=== PATIENT | female | born 1970 | race Caucasian/White ===

== ENCOUNTER 2016-04-04 14:34 | Emergency (ER) | payer OTHER ==
--- NOTE | 2016-04-04 18:59 | ED ORDER SUMMARY ---
..... Patient: ROMEO HOOKER OrderSheet [facility] VisitID: [id number] [address] [place] [address] 46y, F Registration Date/Time: 04/04/2016 ORDER SHEET Weight: 88.4 kg (stated) Allergies: NKDA GENERAL ORDERS: CBC w Diff Urgent (15:22 04/04/2016 ABlanchette PA-C) (15:42 KWilliams R.N.) CMP Urgent (15:22 04/04/2016 ABlanchette PA-C) (15:42 KWilliams R.N.) Amylase Urgent (15:22 04/04/2016 ABlanchette PA-C) (15:42 KWilliams R.N.) Lipase Urgent (15:22 04/04/2016 ABlanchette PA-C) (15:42 KWilliams R.N.) PT with INR Urgent (15:22 04/04/2016 ABlanchette PA-C) (15:42 KWilliams R.N.) UA-Culture if indicated Urgent (15:22 04/04/2016 ABlanchette PA-C) (Ack 16:02 RKaruga) (16:44 SRoberts R.N.) Urine Urgent (15:22 04/04/2016 ABlanchette PA-C) (Ack 16:02 RKaruga) (16:44 SRoberts R.N.) Urine Drug Screen Urgent (15:22 04/04/2016 ABlanchette PA-C) (Ack 16:02 RKaruga) (16:43 SRoberts R.N.) Ammonia Level Urgent (15:22 04/04/2016 ABlanchette PA-C) (15:43 KWilliams R.N.) Magnesium Urgent (15:22 04/04/2016 ABlanchette PA-C) (15:43 KWilliams R.N.) MEDICATION ORDERS: Carafate PO 1 gm (in slurry if possible) (16:23 04/04/2016 ABlanchette PA-C) (16:45 SRoberts R.N.) (Cancelled: Duplicate Order16:50 ABlanchette PA-C) Carafate PO 2 gm (NOW) (16:49 04/04/2016 ABlanchette PA-C) (17:01 SRoberts R.N.) IV FLUIDS: IV NS with Normal Saline 1 Liter: initial bolus none -, then 1000 mL/hr for X1 (NOW) (15:20 04/04/2016 ABlanchette PA-C) (Ack 15:29 SRoberts R.N.) (16:39 SRoberts R.N.) Pepcid IV 40 mg/50mL (NOW) (15:20 04/04/2016 ABlanchette PA-C) (Ack 15:29 SRoberts R.N.) (16:41 SRoberts R.N.) Zofran IV 8 mg (NOW) (15:20 04/04/2016 ABlanchette PA-C) (Ack 15:29 SRoberts R.N.) (16:40 SRoberts R.N.) Ativan IV 0.5 mg (HIGH ALERT MEDICATION, NOW) (15:21 04/04/2016 ABlanchette PA-C) (Ack 15:29 SRoberts R.N.) (16:42 SRoberts R.N.) Ativan IV 0.5 mg (HIGH ALERT MEDICATION, NOW) (16:23 04/04/2016 ABlanchette PA-C) (16:43 SRoberts R.N.) Ativan IV 0.5 mg (HIGH ALERT MEDICATION, NOW) (18:50 04/04/2016 ABlanchette PA-C) (Ack 18:55 SRoberts R.N.) (19:06 SRoberts R.N.) Zofran IV 8 mg (NOW) (18:51 04/04/2016 ABlanchette PA-C) (Ack 18:55 SRoberts R.N.) (19:05 SRoberts R.N.) ORDER SHEET NOTES: [Electronically signed by Yisel Soto R.N. (20:42 04/04/2016)] [Electronically signed by Pattie Jose PA-C (00:02 04/05/2016)] [Electronically locked/signed by Yisel Soto R.N. (20:42 04/04/2016)]
--- NOTE | 2016-04-04 18:59 | ED ORDER SUMMARY ---
..... Patient: ROMEO HOOEKR OrderSheet [facility] VisitID: [id number] [address] [place] [address] 46y, F Registration Date/Time: 04/04/2016 ORDER SHEET Weight: 88.4 kg (stated) Allergies: NKDA GENERAL ORDERS: CBC w Diff Urgent (15:22 04/04/2016 ABlanchette PA-C) (15:42 KWilliams R.N.) CMP Urgent (15:22 04/04/2016 ABlanchette PA-C) (15:42 KWilliams R.N.) Amylase Urgent (15:22 04/04/2016 ABlanchette PA-C) (15:42 KWilliams R.N.) Lipase Urgent (15:22 04/04/2016 ABlanchette PA-C) (15:42 KWilliams R.N.) PT with INR Urgent (15:22 04/04/2016 ABlanchette PA-C) (15:42 KWilliams R.N.) UA-Culture if indicated Urgent (15:22 04/04/2016 ABlanchette PA-C) (Ack 16:02 RKaruga) (16:44 SRoberts R.N.) Urine Urgent (15:22 04/04/2016 ABlanchette PA-C) (Ack 16:02 RKaruga) (16:44 SRoberts R.N.) Urine Drug Screen Urgent (15:22 04/04/2016 ABlanchette PA-C) (Ack 16:02 RKaruga) (16:43 SRoberts R.N.) Ammonia Level Urgent (15:22 04/04/2016 ABlanchette PA-C) (15:43 KWilliams R.N.) Magnesium Urgent (15:22 04/04/2016 ABlanchette PA-C) (15:43 KWilliams R.N.) MEDICATION ORDERS: Carafate PO 1 gm (in slurry if possible) (16:23 04/04/2016 ABlanchette PA-C) (16:45 SRoberts R.N.) (Cancelled: Duplicate Order16:50 ABlanchette PA-C) Carafate PO 2 gm (NOW) (16:49 04/04/2016 ABlanchette PA-C) (17:01 SRoberts R.N.) IV FLUIDS: IV NS with Normal Saline 1 Liter: initial bolus none -, then 1000 mL/hr for X1 (NOW) (15:20 04/04/2016 ABlanchette PA-C) (Ack 15:29 SRoberts R.N.) (16:39 SRoberts R.N.) Pepcid IV 40 mg/50mL (NOW) (15:20 04/04/2016 ABlanchette PA-C) (Ack 15:29 SRoberts R.N.) (16:41 SRoberts R.N.) Zofran IV 8 mg (NOW) (15:20 04/04/2016 ABlanchette PA-C) (Ack 15:29 SRoberts R.N.) (16:40 SRoberts R.N.) Ativan IV 0.5 mg (HIGH ALERT MEDICATION, NOW) (15:21 04/04/2016 ABlanchette PA-C) (Ack 15:29 SRoberts R.N.) (16:42 SRoberts R.N.) Ativan IV 0.5 mg (HIGH ALERT MEDICATION, NOW) (16:23 04/04/2016 ABlanchette PA-C) (16:43 SRoberts R.N.) Ativan IV 0.5 mg (HIGH ALERT MEDICATION, NOW) (18:50 04/04/2016 ABlanchette PA-C) (Ack 18:55 SRoberts R.N.) (19:06 SRoberts R.N.) Zofran IV 8 mg (NOW) (18:51 04/04/2016 ABlanchette PA-C) (Ack 18:55 SRoberts R.N.) (19:05 SRoberts R.N.) ORDER SHEET NOTES: [Electronically signed by Yisel Soto R.N. (20:42 04/04/2016)] [Electronically signed by Pattie Jose PA-C (00:02 04/05/2016)] [Electronically locked/signed by Yisel Soto R.N. (20:42 04/04/2016)]
--- NOTE | 2016-04-04 18:59 | ED NURSING NOTES ---
Clinical Report - Nurses [facility] [address] [place] [address] 04/04/2016 14:37 Patient: ROMEO HOOKER TRIAGE Triage time 14:55. Acuity: LEVEL 3. Chief Complaint: (Withdrawing from etoh, beer). Alert. No acute distress. --15:07 Yisel Soto R.N. 14:54 04/04/16. BP: 110/96. HR: 120. RR: 20. O2 saturation: 98%. Temp: 97.7 F. Pain level now: 2/10. Additional comments: sore all over 2. Also having some heart burn. . --15:07 Yisel Soto R.N. 14:54 04/04/16. BP: 110/96. HR: 120. RR: 20. O2 saturation: 98%. Temp: 97.7 F. Pain level now: 2/10. Additional comments: sore all over 2. Also having some heart burn. . --15:07 Yisel Soto R.N. Weight: 88.4 kg stated. Height/Length: 68 inches Per Patient. BMI: 29.6. --15:00 Yisel Soto R.N. Medications Xanax Oral 0.5 mg, daily as needed. --14:57 Yisel Soto R.N. BusPIRone HCl Oral 30 mg, daily. --14:58 Yisel Soto R.N. CeleXA Oral (Tablet 20 mg) 1 tablet, daily. --14:58 Yisel Soto R.N. Omeprazole Oral 20 mg, daily. --14:59 Yisel Soto R.N. Allergies NKDA. --14:57 Yisel Soto R.N. Medication/allergy information source: the patient and patient's family. --15:07 Yisel Soto R.N. History Arrived by private vehicle. Historian: patient and family. Accompanied by family. Primary physician ([facility]). Onset. (2 months ago, Sober for 5 years, then found out some info about mom's Ca and dying soon.). Treatment [employer]: None. PAST MEDICAL HX: Immunizations: status is unknown. Last normal menstrual period was 1 week ago. SOCIAL HX: Smoker- current status unknown. Alcohol use; consumes beer daily. Patient is a longstanding alcoholic. Patient smells of ETOH in the emergency department. FALL RISK ASSESSMENT: Fall risk assessment completed. No fall risk identified. NUTRITIONAL RISK ASSESSMENT: The nutritional risk assessment revealed no deficiencies. FUNCTIONAL ASSESSMENT: Functional assessment: no impairments noted. LEARNING NEEDS ASSESSMENT: The learning needs assessment revealed no barriers. SKIN INTEGRITY ASSESSMENT: Skin integrity risk assessment completed. No skin integrity risk identified. --15:07 Yisel Soto R.N. PROBLEMS: Etoh withdrawal . Reflux. Anxiety/depression . --15:06 Yisel Soto R.N. ADDITIONAL SURGERIES: Liver bx . Tubal Ligation. Tubal preg. --15:06 Yisel Soto R.N. Interventions ID band on patient. To room. --15:07 Yisel Soto R.N. PHYSICAL ASSESSMENT Ambulatory to room. Patient gowned. GENERAL / NEURO / PSYCH: Alert. Oriented X 4. Appears in pain and anxious. HEENT: Mucous membranes are pink. RESPIRATORY: Respirations not labored. CVS: Capillary refill less than 2 seconds. GI / : Abdomen nontender. SKIN: Skin intact. Skin is warm and dry. Normal skin turgor. --15:07 Yisel Soto R.N. NURSING PROGRESS NOTES Patient gowned. Head of bed elevated. Two patient identifiers checked. Call light placed in reach. Side rails up x 2. Bed placed in lowest position. Brakes of bed on. Patient ready for evaluation. --15:09 Yisel Soto R.N. 15:33 04/04/2016 Started 40 mg of Pepcid IVPB in bag #1 100 mL; at 100 mL/hr via site #1 via IV pump. Allergies verified and confirmed 5 rights. IV patency established. IV site checked: no pain, redness, or swelling. IV flushed thoroughly pre- and post-medication administration. --16:41 Yisel Soto R.N. 15:36 04/04/2016 Ativan (LORazepam) IVP 0.5 mg given over 1 minute(s) via site #1. Allergies verified, confirmed 5 rights and sedative warning given to the patient. IV patency established. IV site checked: no pain, redness, or swelling. IV flushed thoroughly pre- and post-medication administration. IVP given by RN. --16:42 Yisel Soto R.N. 15:37 04/04/2016 Site #1 started via IV in the right antecubital space with an 20g angiocath, with aseptic technique and good blood return; one attempt. Blood drawn: rainbow set. Labeled in the presence of the patient and sent to the lab. Saline lock flushed with 10 mL saline. --15:42 Grady Jones R.N. 15:39 04/04/2016 Started bag #1 1000 mL IV Fluids IV NS (Saline); at 1000 mL/hr over 1 hour(s) via site #1 via IV pump. Allergies verified and confirmed 5 rights. IV patency established. IV site checked: no pain, redness, or swelling. IV flushed thoroughly pre- and post-medication administration. --16:39 Yisel Soto R.N. 15:40 04/04/2016 Zofran (Ondansetron HCl) IVP 8 mg given over 1 minute(s) via site #1. Allergies verified and confirmed 5 rights. IV patency established. IV site checked: no pain, redness, or swelling. IV flushed thoroughly pre- and post-medication administration. IVP given by RN. --16:40 Yisel Soto R.N. 16:33 04/04/2016 Ativan (LORazepam) IVP 0.5 mg given over 1 minute(s) via site #1. Allergies verified, confirmed 5 rights and sedative warning given to the patient. IV patency established. IV site checked: no pain, redness, or swelling. IV flushed thoroughly pre- and post-medication administration. IVP given by RN. --16:43 Yisel Soto R.N. 16:45 04/04/2016 Carafate (Sucralfate) PO 1 gm given. Allergies verified and confirmed 5 rights. --16:45 Yisel Soto R.N. 17:00 04/04/2016 Pepcid IVPB Discontinued: bag #1 infused. Total amount infused: 40/100 mL. IV patency established. IV site checked: no pain, redness, or swelling. IV flushed thoroughly. --17:00 Yisel Soto R.N. 17:01 04/04/2016 Carafate (Sucralfate) PO 2 gm given. Allergies verified and confirmed 5 rights. --17:01 Yisel Soto R.N. 17:01 04/04/2016 IV Fluids IV NS Bag Change: bag #1 infused. Total amount infused: 1000. STARTED bag #2 (1000 mL) at 1000 mL/hr via IV pump. Confirmed 5 rights. IV patency established. IV site checked: no pain, redness, or swelling. IV flushed thoroughly. --17:01 Yisel Soto R.N. 17:05 04/04/16. ( Sleeping, less shaky, spouse at the bedside.). --17:05 Yisel Soto R.N. 17:20 04/04/16. BP: 110/68. HR: 68. RR: 16. O2 saturation: 99% on room air. Pain level now: 0/10. Additional comments: sleeping . --17:20 Yisel Soto R.N. 17:54 04/04/16. BP: 145/88. HR: 69. RR: 18. O2 saturation: 99% on room air. Pain level now: 0/10. Additional comments: sleeping, arouses easily . --17:56 Yisel Soto R.N. 18:10 04/04/2016 IV Fluids IV NS Discontinued: bag #2 infused. Total amount infused: 1000 mL. IV patency established. IV site checked: no pain, redness, or swelling. IV flushed thoroughly. --19:06 Yisel Soto R.N. 18:50 04/04/2016 Zofran (Ondansetron HCl) IVP 8 mg given over 2 minute(s) via site #1. Allergies verified and confirmed 5 rights. IV patency established. IV site checked: no pain, redness, or swelling. IV flushed thoroughly pre- and post-medication administration. IVP given by RN. --19:05 Yisel Soto R.N. 19:01 04/04/2016 Ativan (LORazepam) IVP 0.5 mg given over 1 minute(s) via site #1. Allergies verified, confirmed 5 rights and sedative warning given to the patient and patient's family. IV patency established. IV site checked: no pain, redness, or swelling. IV flushed thoroughly pre- and post-medication administration. IVP given by RN. --19:06 Yisel Soto R.N. DISPOSITION / DISCHARGE 19:30. Condition at departure: improved. No learning barriers present. Discharge instructions provided and reviewed with the patient. Reviewed medication(s) side effects, precautions, dosing and course information. Prescription(s) given to the patient. Patient verbalized understanding. Written instructions provided in Thai. The patient was discharged home and accompanied by spouse. She left the Emergency Department ambulatory and via private vehicle. Spouse driving. Medication list reviewed and validated. --20:41 Yisel Soto R.N. 19:30 04/04/16. BP: 135/78. HR: 79. RR: 20. O2 saturation: 100%. Temp: deferred. Pain level now: 1/10. 17:54 04/04/16. BP: 145/88. HR: 69. RR: 18. O2 saturation: 99% on room air. Pain level now: 0/10. Additional comments: sleeping, arouses easily . 17:20 04/04/16. BP: 110/68. HR: 68. RR: 16. O2 saturation: 99% on room air. Pain level now: 0/10. Additional comments: sleeping . 16:05 04/04/16. BP: 113/84. HR: 69. RR: 18. O2 saturation: 99% on room air. 14:54 04/04/16. BP: 110/96. HR: 120. RR: 20. O2 saturation: 98%. Temp: 97.7 F. Pain level now: 2/10. Additional comments: sore all over 2. Also having some heart burn. . --20:41 Yisel Soto R.N. Locked/Released at 04/04/2016 20:42 by Yisel Soto R.N.
--- NOTE | 2016-04-04 18:59 | ED CLINICAL REPORT ---
Clinical Report - Physicians/Mid Levels [facility] [address] [place] [address] 04/04/2016 14:37 Patient: ROMEO HOOKER Time Seen: 15:04; initial patient contact. Arrived- By private vehicle. Historian- patient. pt has been sober for past 5 years and 2 weeks ago started drinking again when she found out her mother is dying of cancer she has been drinking 12-16 [place] and beers/day since. she had 3 angry orchards today, developed upper epigastric pain and began vomiting. she also stopped taking all of her psych medication including celexa and has been having some 'brain zaps' since. HISTORY OF PRESENT ILLNESS Chief Complaint: TREMORS. Wants to stop drinking. Wants to enter detox program. but is in recovery and has access to counseling for alcohol currently, her is with her and is going to take her tomorrow. Symptoms started today. Duration of substance abuse- 2 weeks. Substances abused: Alcohol. (2 hours ago). No fever, chills or suicidal thoughts. She has had nausea, vomiting and moderate abdominal pain. The pain is described as located in the epigastrium and been depressed. The symptoms are described as moderate. No injuries noted. Similar symptoms previously: Several times (years ago). Recent medical care: Not recently seen/assessed. REVIEW OF SYSTEMS The patient has not had weight loss. No sweats. All systems otherwise negative, except as recorded above. PAST HISTORY See nurses notes. History of alcoholism. Psychiatric problems: depression. Problems: Etoh withdrawal . Reflux. Anxiety/depression . Medications: Omeprazole Oral 20 mg, daily. CeleXA Oral (Tablet 20 mg) 1 tablet, daily. BusPIRone HCl Oral 30 mg, daily. Xanax Oral 0.5 mg, daily as needed. Allergies: NKDA. SOCIAL HISTORY Alcohol use. No drug use. FAMILY HISTORY Negative. ADDITIONAL NOTES The nursing notes have been reviewed with agreement regarding the chief complaint, HPI, ROS, PMH and patient medications and allergies. PHYSICAL EXAM Vital Signs: 04/04/2016 14:54 BP: 110/96. HR: 120. RR: 20. O2 saturation: 98%. Temp: 97.7 F. Pain level now: 03/19. Have been reviewed. Appearance: Alert. Oriented X3. The patient is agitated and odor of alcohol is present. Speech is not slurred. Patient in mild distress. Head: Head atraumatic. Eyes: Pupils equal, round and reactive to light. ENT: Normal ENT inspection. Airway intact. Moist mucous membranes. Pharynx normal. Neck: Normal inspection. Neck supple. CVS: Normal heart rate and rhythm. Heart sounds normal. Respiratory: No respiratory distress. Breath sounds normal. Abdomen: Soft and nontender. Mild tenderness in the epigastric area. No guarding or rebound tenderness. No organomegaly. Back: Normal inspection. Skin: Skin warm and dry. Normal skin color. No rash. Normal skin turgor. Extremities: No lower extremity edema. Neuro: Alert. No motor deficit. No sensory deficit. Reflexes normal. LABS, X-RAYS, AND EKG Laboratory Tests: UA-Culture if indicated: (ALEENA: 04/04/2016 16:30) ( [facility] [place] Final results Test Result Flag Units (Reference) URINE COLOR YELLOW URINE APPEARANCE CLEAR URINE GLUCOSE NEGATIVE (NEGATIVE) URINE BILIRUBIN NEGATIVE (NEGATIVE) URINE KETONE NEGATIVE (NEGATIVE) URINE SPECIFIC GRAVITY <= 1.005 L (1.010-1.030) URINE PH 6.0 (5.0-8.0) URINE PROTEIN NEGATIVE (NEGATIVE) URINE UROBILINOGEN 0.2 EU/dL (0.2-1.0) URINE NITRITE NEGATIVE (NEGATIVE) URINE BLOOD 1+ (NEGATIVE) URINE LEUK ESTERASE NEGATIVE (NEGATIVE) URINE RBC 0-1 rbc/hpf (0-1) URINE WBC 1-3 wbc/hpf (0-1) URINE EPITHELIAL CELLS 1-3 EPI/hpf (0-5) URINE BACTERIA TRACE (<1+) (NONE SEEN) URINE COMMENT CULT NOT INDICATED URINE CULTURES ARE SET-UP BASED ON THE FOLLOWING CRITERIA:POSITIVE NITRITEPOSITIVE LEUKOCYTE ESTERASEGREATER THAN 10 WHITE BLOOD CELLSMODERATE (2+) OR GREATER BACTERIA Urine: (ALEENA: 04/04/2016 15:38) ( [facility] 04/04/2016 16:55) Final results Test Result Flag Units (Reference) URINE NEGATIVE CBC w Diff: (ALEENA: 04/04/2016 15:38) ( [facility] 04/04/2016 16:22) Final results Test Result Flag Units (Reference) WHITE BLOOD COUNT 4.8 K/uL (4.5-11.5) RED BLOOD COUNT 5.05 M/uL (4.00-5.20) HEMOGLOBIN 12.7 gm/dL (12.0-16.0) HEMATOCRIT 38.7 % (36.0-46.0) MEAN CELL VOLUME 77 L fL (80-100) MEAN CORPUSCULAR HGB 25 L pg (26-34) MEAN CORPUSCULAR HGB CONC 33 g/dL (31-37) RED CELL DISTRIBUTION WIDTH 18.3 H % (11.6-14.8) PLATELET COUNT 209 K/uL (150-400) NEUTROPHIL % 57.3 % (50-75) LYMPH % 27.4 % (25-40) MONO % 10.0 % (3-14) EOSINOPHIL % 4.5 H % (0-4) BASOPHIL % 0.8 % (0-2) PT with INR: (ALEENA: 04/04/2016 15:38) ( [facility] 04/04/2016 16:25) Final results Test Result Flag Units (Reference) INR 1.0 (0.8-1.2) Low Intensity Therapy: INR 1.5-2.0 PT range 18.5-23.1Mod.Intensity Therapy: INR 2.0-3.0 PT range 23.1-31.5High Intensity Therapy: INR 2.5-3.5 PT range 27.4-35.5High Intensity Therapy 2: INR 3.0-4.0 PT range 31.5-39.3 Urine Drug Screen: (ALEENA: 04/04/2016 16:30) ( [facility] 04/04/2016 17:10) Final results Test Result Flag Units (Reference) AMPHETAMINE/METHAMPHETAMINE NEGATIVE (NEGATIVE) BARBITURATE NEGATIVE (NEGATIVE) BENZODIAZEPINE NEGATIVE (NEGATIVE) CANNABINOID NEGATIVE (NEGATIVE) COCAINE NEGATIVE (NEGATIVE) ECSTASY NEGATIVE (NEGATIVE) METHADONE NEGATIVE (NEGATIVE) OPIATE NEGATIVE (NEGATIVE) The urine drug screen is a qualitative screening test fordrug overdose and abuse. All screen results should beconsidered as presumptive.Drugs screened for are as follows:BenzodiazepinesCocaineAmphetamines/MetamphetaminesTHC (Tetrahydrocannabinol)OpiatesBarbituratesEcstasyMethadonePositive results are unconfirmed. For confirmation, notifythe lab for the specimen to be sent to the reference lab.All confirmations must be performed by a differentmethodology.The ingestion of natural herbal and plant productscontaining Ephedra/Ephedra metabolites can produce in urineone or more substances capable of cross reacting withamphetamine/methamphetamine immunoassays. These testsprovide a preliminary result only. A more specificalternative chemical method must be used to obtain aconfirmed analytical result. Ammonia Level: (ALEENA: 04/04/2016 16:30) ( [facility] 04/04/2016 16:59) Final results Test Result Flag Units (Reference) AMMONIA 30 umol/L (11-32) CMP: (ALEENA: 04/04/2016 15:38) ( [facility] 04/04/2016 16:19) Final results Test Result Flag Units (Reference) GLUCOSE 127 H mg/dL (70-110) BUN 4 L mg/dL (7-18) CREATININE 0.7 mg/dL (0.6-1.3) Estimated GFR >60 mL/min Estimated GFR- >60 mL/min Note: Persistent reduction over 3 months in eGFR<60 mL/min/1.73 m2 defines CKD. Patients with eGFR values>=60 mL/min/1.73 m2 may also have CKD if evidence ofpersistent proteinuria. Additional information may be foundat www.kidney.org. SODIUM 143 mmol/L (136-145) POTASSIUM 3.8 mmol/L (3.5-5.1) CHLORIDE 103 mmol/L (98-107) CARBON DIOXIDE 27 mmol/L (21-32) CALCIUM 8.2 L mg/dL (8.5-10.1) TOTAL PROTEIN 7.6 g/dL (6.4-8.2) ALBUMIN 3.6 g/dL (3.3-5.0) BILIRUBIN, TOTAL 0.3 mg/dL (0.0-1.0) ALKALINE PHOSPHATASE 78 U/L (46-116) AST (SGOT) 50 H U/L (15-37) ALT (SGPT) 48 U/L (12-78) MAGNESIUM 1.6 L mg/dL (1.8-2.4) LIPASE 174 U/L (73-393) AMYLASE 65 U/L (25-115) . PROGRESS AND PROCEDURES Course of Care: pt vomiting at 1500, guiac positive no ronit blood. Patient gowned. Head of bed elevated. Two patient identifiers checked. Call light placed in reach. Side rails up x 2. Bed placed in lowest position. Brakes of bed on. Patient ready for evaluation. --15:09 Yisel Soto R.N. 15:33 04/04/2016 Started 40 mg of Pepcid IVPB in bag #1 100 mL; at 100 mL/hr via site #1 via IV pump. Allergies verified and confirmed 5 rights. IV patency established. IV site checked: no pain, redness, or swelling. IV flushed thoroughly pre- and post-medication administration. --16:41 Yisel Soto R.N. 15:36 04/04/2016 Ativan (LORazepam) IVP 0.5 mg given over 1 minute(s) via site #1. Allergies verified, confirmed 5 rights and sedative warning given to the patient. IV patency established. IV site checked: no pain, redness, or swelling. IV flushed thoroughly pre- and post-medication administration. IVP given by RN. --16:42 Yisel Soto R.N. 15:37 04/04/2016 Site #1 started via IV in the right antecubital space with an 20g angiocath, with aseptic technique and good blood return; one attempt. Blood drawn: rainbow set. Labeled in the presence of the patient and sent to the lab. Saline lock flushed with 10 mL saline. --15:42 Grady Jones R.N. 15:39 04/04/2016 Started bag #1 1000 mL IV Fluids IV NS (Saline); at 1000 mL/hr over 1 hour(s) via site #1 via IV pump. Allergies verified and confirmed 5 rights. IV patency established. IV site checked: no pain, redness, or swelling. IV flushed thoroughly pre- and post-medication administration. --16:39 Yisel Soto R.N. 15:40 04/04/2016 Zofran (Ondansetron HCl) IVP 8 mg given over 1 minute(s) via site #1. Allergies verified and confirmed 5 rights. IV patency established. IV site checked: no pain, redness, or swelling. IV flushed thoroughly pre- and post-medication administration. IVP given by RN. --16:40 Yisel Soto R.N. 16:33 04/04/2016 Ativan (LORazepam) IVP 0.5 mg given over 1 minute(s) via site #1. Allergies verified, confirmed 5 rights and sedative warning given to the patient. IV patency established. IV site checked: no pain, redness, or swelling. IV flushed thoroughly pre- and post-medication administration. IVP given by RN. --16:43 Yisel Soto R.N. 16:45 04/04/2016 Carafate (Sucralfate) PO 1 gm given. Allergies verified and confirmed 5 rights. --16:45 Yisel Soto R.N. 17:00 04/04/2016 Pepcid IVPB Discontinued: bag #1 infused. Total amount infused: 40/100 mL. IV patency established. IV site checked: no pain, redness, or swelling. IV flushed thoroughly. --17:00 Yisel Soto R.N. 17:01 04/04/2016 Carafate (Sucralfate) PO 2 gm given. Allergies verified and confirmed 5 rights. --17:01 Yisel Soto R.N. 17:01 04/04/2016 IV Fluids IV NS Bag Change: bag #1 infused. Total amount infused: 1000. STARTED bag #2 (1000 mL) at 1000 mL/hr via IV pump. Confirmed 5 rights. IV patency established. IV site checked: no pain, redness, or swelling. IV flushed thoroughly. --17:01 Yisel Soto R.N. 17:05 04/04/16. ( Sleeping, less shaky, spouse at the bedside.). --17:05 Yisel Soto R.N. 17:20 04/04/16. BP: 110/68. HR: 68. RR: 16. O2 saturation: 99% on room air. Pain level now: 0/10. Additional comments: sleeping . --17:20 Yisel Soto R.N. 17:54 04/04/16. BP: 145/88. HR: 69. RR: 18. O2 saturation: 99% on room air. Pain level now: 0/10. Additional comments: sleeping, arouses easily . --17:56 Yisel Soto R.N. 18:10 04/04/2016 IV Fluids IV NS Discontinued: bag #2 infused. Total amount infused: 1000 mL. IV patency established. IV site checked: no pain, redness, or swelling. IV flushed thoroughly. --19:06 Yisel Soto R.N. 18:50 04/04/2016 Zofran (Ondansetron HCl) IVP 8 mg given over 2 minute(s) via site #1. Allergies verified and confirmed 5 rights. IV patency established. IV site checked: no pain, redness, or swelling. IV flushed thoroughly pre- and post-medication administration. IVP given by RN. --19:05 Yisel Soto R.N. 19:01 04/04/2016 Ativan (LORazepam) IVP 0.5 mg given over 1 minute(s) via site #1. Allergies verified, confirmed 5 rights and sedative warning given to the patient and patient's family. IV patency established. IV site checked: no pain, redness, or swelling. IV flushed thoroughly pre- and post-medication administration. IVP given by RN. --19:06 Yisel Soto R.N. no vomiting, pt is resting comfortably, no abdominal pain, comfortable. Patient is stable. Physical exam findings are improved. Symptoms much better. CLINICAL IMPRESSION Minor GI bleed with hematemesis. Recovering substance abuse- alcohol with anxiety. Alcohol withdrawal with irritability and agitation. No delirium, hallucinations or delirium tremens. Anxiety reaction. INSTRUCTIONS Stay with responsible adult family member (or other responsible adult) ( is with her). No strenuous activity. Rest. Do not smoke. No alcohol. (restart your celexa tomorrow. Also see your recovery counselor or AA tomorrow and abstain from alcohol. if you start vomiting again, RT ER.). Warnings: Further evaluation is necessary. It is very important to follow up with a physician. SEDATIVE MEDICATION: You were given sedative medication during your visit. Do not drive or operate dangerous machinery. CONTROLLED SUBSTANCE WARNINGS. Your Current Medications: CONTINUE TAKING THE FOLLOWING MEDICATIONS: BusPIRone HCl Oral : 30 mg daily. CeleXA Oral : Tablet 20 mg, 1 tablet daily. Omeprazole Oral : 20 mg daily. Xanax Oral : 0.5 mg daily, prn. Prescription Medications: Zofran (orally disintegrating tablets) 4 mg: take 1-2 orally every 6 hours as needed for nausea and vomiting. Dispense ten (10). No refill. Substitution is permissible. Ativan 1 mg: every 6 hours as needed for anxiety. Dispense ten (10). No refill. Substitution is permissible. Carafate 1 gm tablets: take 1 orally four times daily (1 hour before meals and at bedtime) for 10 days. Dispense sixty (60). One refill. Substitution is permissible. Omeprazole 40 mg capsules: take 1 capsule orally every 12 hours for 10 days. Dispense twenty (20). One refill. Follow-up: Follow up with your doctor Tuesday even if well. Call for an appointment. Understanding of the discharge instructions verbalized by patient and family. (Electronically signed by Pattie Jose PA-C 04/05/2016 0:02)
--- NOTE | 2016-04-05 00:03 | ED MED RECONCILIATION SUMMARY ---
Patient: ROMEO HOOKER Medication Reconciliation Report [facility] VisitID: [id number] [address] [place] [address] 46y, F Registration Date/Time: 04/04/2016 Weight: 88.4 kg Height/Length: 68 in. BMI: 29.6 ALLERGIES: NKDA The patient's Home Medications are listed below: CONTINUE TAKING THE FOLLOWING MEDICATIONS: BusPIRone HCl Oral 30 mg, daily CeleXA Oral (20 mg) 1 tablet, daily Omeprazole Oral 20 mg, daily Xanax Oral 0.5 mg, daily The source(s) of the original Home Medication information: patient patient's family member The following Medications were given to the patient in the Emergency Department: IV NS IV Fluids bolus 0, then 1000 mL/hr, administered: 04/04/2016 3:39:00 PM Zofran [IVP] IVP 8 mg, administered: 04/04/2016 3:40:00 PM Pepcid [IVPB] IVPB bolus 0, then 40 mg 100 mL/hr, administered: 04/04/2016 3:33:00 PM Ativan [IVP] IVP 0.5 mg, administered: 04/04/2016 3:36:00 PM Ativan [IVP] IVP 0.5 mg, administered: 04/04/2016 4:33:00 PM Carafate [PO] PO 1 gm, administered: 04/04/2016 4:45:00 PM Carafate [PO] PO 2 gm, administered: 04/04/2016 5:01:00 PM Zofran [IVP] IVP 8 mg, administered: 04/04/2016 6:50:00 PM Ativan [IVP] IVP 0.5 mg, administered: 04/04/2016 7:01:00 PM The following Medications were prescribed to the patient: Zofran (orally disintegrating tablets) 4 mg: take 1-2 orally every 6 hours as needed for nausea and vomiting. Dispense ten (10). No refill. Substitution is permissible. -- Pattie Jose PA-C Ativan 1 mg: every 6 hours as needed for anxiety. Dispense ten (10). No refill. Substitution is permissible. -- Pattie Jose PA-C Carafate 1 gm tablets: take 1 orally four times daily (1 hour before meals and at bedtime) for 10 days. Dispense sixty (60). One refill. Substitution is permissible. -- Pattie Jose PA-C Omeprazole 40 mg capsules: take 1 capsule orally every 12 hours for 10 days. Dispense twenty (20). One refill. -- Pattie Jose PA-C
--- NOTE | 2016-04-05 00:03 | ED MAR SUMMARY ---
..... Medication Administration Record [facility] [address] [place] [address] Patient: ROMEO HOOKER Visit ID: [id number] 46y, F Weight: 88.4 kg Height/Length: 68 in BMI: 29.6 ALLERGIES: NKDA Start 15:33 04/04/2016 Yisel Soto R.N., Stop 17:00 04/04/2016 Yisel Soto R.N. Medication Administered: PEPCID [IVPB], Dose: 40 mg IVPB, Rate: 100 mL/hr, Dispensed: 100 mL bag, Site: #1. Medication Ordered: Pepcid IV 40 mg/50mL (NOW). Given 15:36 04/04/2016 Yisel Soto R.N. Medication Administered: ATIVAN [IVP] (LORAZEPAM), Dose: 0.5 mg IVP over 1 minute(s), Site: #1. Medication Ordered: Ativan IV 0.5 mg (HIGH ALERT MEDICATION, NOW). Start 15:39 04/04/2016 Yisel Soto R.N., Stop 18:10 04/04/2016 Yisel Soto R.N. Medication Administered: IV NS (SALINE), Dose: IV Fluids over 1 hour(s), Rate: 1000 mL/hr, Dispensed: 1000 mL bag, Site: #1 right AC. Medication Ordered: IV NS with Normal Saline 1 Liter: initial bolus none -, then 1000 mL/hr for X1 (NOW). Given 15:40 04/04/2016 Yisel Soto R.N. Medication Administered: ZOFRAN [IVP] (ONDANSETRON HCL), Dose: 8 mg IVP over 1 minute(s), Site: #1 right AC. Medication Ordered: Zofran IV 8 mg (NOW). Given 16:33 04/04/2016 Yisel Soto R.N. Medication Administered: ATIVAN [IVP] (LORAZEPAM), Dose: 0.5 mg IVP over 1 minute(s), Site: #1 right AC. Medication Ordered: Ativan IV 0.5 mg (HIGH ALERT MEDICATION, NOW). Given 16:45 04/04/2016 Yisel Soto R.N. Medication Administered: CARAFATE [PO] (SUCRALFATE), Dose: 1 gm PO. Medication Ordered: Carafate PO 1 gm (in slurry if possible). Given 17:04/04/2016 Yisel Soto R.N. Medication Administered: CARAFATE [PO] (SUCRALFATE), Dose: 2 gm PO. Medication Ordered: Carafate PO 2 gm (NOW). Given 18:50 04/04/2016 Yisel Soto R.N. Medication Administered: ZOFRAN [IVP] (ONDANSETRON HCL), Dose: 8 mg IVP over 2 minute(s), Site: #1 right AC. Medication Ordered: Zofran IV 8 mg (NOW). Given 19:01 04/04/2016 Yisel Soto R.N. Medication Administered: ATIVAN [IVP] (LORAZEPAM), Dose: 0.5 mg IVP over 1 minute(s), Site: #1 right AC. Medication Ordered: Ativan IV 0.5 mg (HIGH ALERT MEDICATION, NOW).
--- NOTE | 2016-04-05 00:03 | ED MED RECONCILIATION SUMMARY ---
Patient: ROMEO HOOKER Medication Reconciliation Report [facility] VisitID: [id number] [address] [place] [address] 46y, F Registration Date/Time: 04/04/2016 Weight: 88.4 kg Height/Length: 68 in. BMI: 29.6 ALLERGIES: NKDA The patient's Home Medications are listed below: CONTINUE TAKING THE FOLLOWING MEDICATIONS: BusPIRone HCl Oral 30 mg, daily CeleXA Oral (20 mg) 1 tablet, daily Omeprazole Oral 20 mg, daily Xanax Oral 0.5 mg, daily The source(s) of the original Home Medication information: patient patient's family member The following Medications were given to the patient in the Emergency Department: IV NS IV Fluids bolus 0, then 1000 mL/hr, administered: 04/04/2016 3:39:00 PM Zofran [IVP] IVP 8 mg, administered: 04/04/2016 3:40:00 PM Pepcid [IVPB] IVPB bolus 0, then 40 mg 100 mL/hr, administered: 04/04/2016 3:33:00 PM Ativan [IVP] IVP 0.5 mg, administered: 04/04/2016 3:36:00 PM Ativan [IVP] IVP 0.5 mg, administered: 04/04/2016 4:33:00 PM Carafate [PO] PO 1 gm, administered: 04/04/2016 4:45:00 PM Carafate [PO] PO 2 gm, administered: 04/04/2016 5:01:00 PM Zofran [IVP] IVP 8 mg, administered: 04/04/2016 6:50:00 PM Ativan [IVP] IVP 0.5 mg, administered: 04/04/2016 7:01:00 PM The following Medications were prescribed to the patient: Zofran (orally disintegrating tablets) 4 mg: take 1-2 orally every 6 hours as needed for nausea and vomiting. Dispense ten (10). No refill. Substitution is permissible. -- Pattie Jose PA-C Ativan 1 mg: every 6 hours as needed for anxiety. Dispense ten (10). No refill. Substitution is permissible. -- Pattie Jose PA-C Carafate 1 gm tablets: take 1 orally four times daily (1 hour before meals and at bedtime) for 10 days. Dispense sixty (60). One refill. Substitution is permissible. -- Pattie Jose PA-C Omeprazole 40 mg capsules: take 1 capsule orally every 12 hours for 10 days. Dispense twenty (20). One refill. -- Pattie Jose PA-C
--- NOTE | 2016-04-05 00:03 | ED MAR SUMMARY ---
..... Medication Administration Record [facility] [address] [place] [address] Patient: ROMEO HOOKER Visit ID: [id number] 46y, F Weight: 88.4 kg Height/Length: 68 in BMI: 29.6 ALLERGIES: NKDA Start 15:33 04/04/2016 Yisel Soto R.N., Stop 17:00 04/04/2016 Yisel Soto R.N. Medication Administered: PEPCID [IVPB], Dose: 40 mg IVPB, Rate: 100 mL/hr, Dispensed: 100 mL bag, Site: #1. Medication Ordered: Pepcid IV 40 mg/50mL (NOW). Given 15:36 04/04/2016 Yisel Soto R.N. Medication Administered: ATIVAN [IVP] (LORAZEPAM), Dose: 0.5 mg IVP over 1 minute(s), Site: #1. Medication Ordered: Ativan IV 0.5 mg (HIGH ALERT MEDICATION, NOW). Start 15:39 04/04/2016 Yisel Soto R.N., Stop 18:10 04/04/2016 Yisel Soto R.N. Medication Administered: IV NS (SALINE), Dose: IV Fluids over 1 hour(s), Rate: 1000 mL/hr, Dispensed: 1000 mL bag, Site: #1 right AC. Medication Ordered: IV NS with Normal Saline 1 Liter: initial bolus none -, then 1000 mL/hr for X1 (NOW). Given 15:40 04/04/2016 Yisel Soto R.N. Medication Administered: ZOFRAN [IVP] (ONDANSETRON HCL), Dose: 8 mg IVP over 1 minute(s), Site: #1 right AC. Medication Ordered: Zofran IV 8 mg (NOW). Given 16:33 04/04/2016 Yisel Soto R.N. Medication Administered: ATIVAN [IVP] (LORAZEPAM), Dose: 0.5 mg IVP over 1 minute(s), Site: #1 right AC. Medication Ordered: Ativan IV 0.5 mg (HIGH ALERT MEDICATION, NOW). Given 16:45 04/04/2016 Yisel Soto R.N. Medication Administered: CARAFATE [PO] (SUCRALFATE), Dose: 1 gm PO. Medication Ordered: Carafate PO 1 gm (in slurry if possible). Given 17:04/04/2016 iYsel Soto R.N. Medication Administered: CARAFATE [PO] (SUCRALFATE), Dose: 2 gm PO. Medication Ordered: Carafate PO 2 gm (NOW). Given 18:50 04/04/2016 Yisel Soto R.N. Medication Administered: ZOFRAN [IVP] (ONDANSETRON HCL), Dose: 8 mg IVP over 2 minute(s), Site: #1 right AC. Medication Ordered: Zofran IV 8 mg (NOW). Given 19:01 04/04/2016 Yisel Soto R.N. Medication Administered: ATIVAN [IVP] (LORAZEPAM), Dose: 0.5 mg IVP over 1 minute(s), Site: #1 right AC. Medication Ordered: Ativan IV 0.5 mg (HIGH ALERT MEDICATION, NOW).
--- NOTE | 2016-04-05 00:03 | ED DISCHARGE INSTRUCTIONS ---
Patient: ROMEO HOOKER General Instructions [facility] VisitID: [id number] [place] [address] 46y, F Registration Date/Time: 04/04/2016 Minor GI bleed with hematemesis. Recovering substance abuse- alcohol with anxiety. Alcohol withdrawal with irritability and agitation. No delirium, hallucinations or delirium tremens. Anxiety reaction. INSTRUCTIONS Stay with responsible adult family member (or other responsible adult) ( is with her). No strenuous activity. Rest. Do not smoke. No alcohol. (restart your celexa tomorrow. Also see your recovery counselor or AA tomorrow and abstain from alcohol. if you start vomiting again, RT ER.). Warnings: Further evaluation is necessary. It is very important to follow up with a physician. SEDATIVE MEDICATION: You were given sedative medication during your visit. Do not drive or operate dangerous machinery. CONTROLLED SUBSTANCE WARNINGS. Your Current Medications: CONTINUE TAKING THE FOLLOWING MEDICATIONS: BusPIRone HCl Oral : 30 mg daily. CeleXA Oral : Tablet 20 mg, 1 tablet daily. Omeprazole Oral : 20 mg daily. Xanax Oral : 0.5 mg daily, prn. Prescription Medications: Zofran (orally disintegrating tablets) 4 mg: take 1-2 orally every 6 hours as needed for nausea and vomiting. Dispense ten (10). No refill. Substitution is permissible. Ativan 1 mg: every 6 hours as needed for anxiety. Dispense ten (10). No refill. Substitution is permissible. Carafate 1 gm tablets: take 1 orally four times daily (1 hour before meals and at bedtime) for 10 days. Dispense sixty (60). One refill. Substitution is permissible. Omeprazole 40 mg capsules: take 1 capsule orally every 12 hours for 10 days. Dispense twenty (20). One refill. Follow-up: Follow up with your doctor Tuesday even if well. Call for an appointment. Understanding of the discharge instructions verbalized by patient and family. ADDITIONAL INFORMATION Alcohol Withdrawal Alcohol withdrawal symptoms occur if you have been drinking steadily for at least several days, and your body gets used to the effect of alcohol. When you suddenly stop drinking (or, even just cut down your daily intake but continue to drink), you may develop alcohol withdrawal, also called the The usual symptoms last 3-4 days and include nervousness, shakiness, nausea, sweating, sleeplessness. In severe cases hallucinations (seeing things that are not there) and seizures can occur. Home Care: You will need plenty of rest and fluids over the next several days. Eat regular meals. Of course, do not drink any more alcohol. During this time, it is best that you stay with family or friends who can help and support you. You can also admit yourself to a residential detox program. Do not drive until all symptoms are gone and you are feeling better. If you were given sedative medication to reduce your symptoms, do not take it more often than prescribed and never take it with alcohol. Follow Up: Once you have gone through the withdrawal symptoms, you have fought half of the morales. To avoid the risk of returning to your previous drinking pattern, it is essential that you get follow-up support and treatment. Alcoholics Anonymous offers support through a self-help fellowship. There are no dues or fees. See the Yellow Pages and call for time and place of meetings. www.aa.org [employer] offers support to families of alcohol users. 671.149.2702 www.al-anon.org [employer] [place] On Alcoholism And Drug Dependence 401-513-0436 www.ncadd.org Residential alcohol detox programs are available. Check the Yellow Pages under Drug Abuse & Treatment Centers. Get Prompt Medical Attention if any of the following occur: Severe shakiness Hallucinations Seizure Fever over 100.5 F (38.0 C) oral Headache, confusion, extreme drowsiness, inability to awaken Increasing upper abdominal pain Repeated vomiting or vomiting blood Stress Reaction Anxiety is the feeling we all get when we think something bad might happen. It is a normal response to stress and usually causes only a mild reaction. When anxiety becomes more severe, emotions may interfere with daily life. In some cases, you may not even be aware of what it is youre anxious about! During an anxiety reaction, you may feel like you are helpless, nervous, depressed or irritable. Your body may show signs of anxiety in many ways. You may experience dry mouth, shakiness, dizziness, weakness, trouble breathing, chest pressure, headache, nausea, diarrhea, tiredness, inability to sleep or sexual problems. Home Care: 1) Try to locate the sources of stress in your life. They may not be obvious! These may include: -- Daily hassles of life which pile up (traffic jams, missed appointments, car troubles, etc.) -- Major life changes, both good (new baby, job promotion) and bad (loss of job, loss of loved one) -- Overload: feeling that you have too many responsibilities and can't take care of all of them at once -- Feeling helpless, feeling that your problems are beyond what youre able to solve 2) Notice how your body reacts to stress. Learn to listen to your body signals. This will help you take action before the stress becomes severe. 3) When you can, do something about the source of your stress. (Avoid hassles, limit the amount of change that happens in your life at one time and take a break when you feel overloaded). 4) Unfortunately, many stressful situations cannot be avoided. It is necessary to learn HOW TO MANAGE STRESS better. There are many proven methods that will reduce your anxiety. These include simple things like exercise, good nutrition and adequate rest. Also, there are certain techniques that are helpful: relaxation and breathing exercises, visualization, biofeedback and meditation. For more information about this, consult your doctor or go to a local bookstore and review the many books and tapes available on this subject. Follow Up If you feel that your anxiety is not responding to self-help measures, contact your doctor or make an appointment with a counselor. Get Prompt Medical Attention if any of the following occur: -- Your symptoms get worse -- Chest pain or trouble breathing -- Severe headache not relieved by rest and mild pain reliever -- Rapid or irregular heartbeat, fainting GI Bleeding (Upper), Stable There are signs that you have bled from your upper intestinal tract (esophagus, stomach or upper intestine). This may be due to: Repeated vomiting which may cause a small tear in the lining of the esophagus, An ulcer in the stomach or duodenum (upper intestine) Severe gastritis (from use of alcohol, aspirin or anti-inflammatory drugs) Esophageal varices (enlarged veins in the esophagus) may also cause bleeding like this. Your exam today showed that you have not lost a large amount of blood and your condition is stable. Bleeding from the upper GI tract causes the stool to turn black. Home Care: 1) If your bleeding is due to an ulcer or gastritis, an acid-blocking medicine will help. Unless an acid christian was prescribed (or if you cannot afford one that was prescribed), you may use fjea-mwc-pxowhyf drugs such as Pepcid AC (famotidine), Tagamet (cimetidine) or Zantac (ranitidine). These begin to work within a few hours. Prilosec OTC (omeprazole) is a new type of acid christian which may be more effective. It takes up to four days for its full effect. You may get additional short-term relief by taking antacids (Mylanta or Maalox). It should be taken one hour after meals and at bedtime. Do not take Tagamet (cimetidine), Zantac (ranitidine) or Carafate (sucralfate) within one hour of an antacid. 2) Avoid factors which increase stomach acid. These include cigarettes, caffeine (coffee, jenniffer, teas) and stress. 3) Avoid substances that irritate your stomach. These include aspirin and anti-inflammatory drugs (such as ibuprofen, Advil, Motrin, naproxen, Aleve, Naprosyn), alcohol and spicy foods. Prednisone and related prescription drugs can cause an ulcer. Discuss with your doctor if you are taking these. 4) Take any prescribed medicine as directed to promote healing. 5) If alcohol is a possible cause of your GI bleeding, it is urgent that you talk with your doctor about ways to help you quit. Follow Up with your doctor as advised. Get Prompt Medical Attention if any of the following occur: -- Stomach pain worsens -- Pain appears, worsens or spreads to the neck, back, shoulder or arm -- You vomit blood (red or black color) -- You feel weak or dizzy, or you faint -- You have fever or abdominal swelling -- Red blood in the stool You have been given the following additional information: Alcohol Withdrawal Anxiety Reaction GI Bleed, Upper (Stable) Stay with responsible adult family member (or other responsible adult) ( is with her). No strenuous activity. Rest. (Electronically signed by Pattie Jose PA-C 04/05/2016 0:02)
== END 2016-04-04 19:30 | disposition home or self-care (01) ==
LOC: ED SRH 14:34
DX: K92.0 Hematemesis (principal); F10.180 Alcohol abuse with alcohol-induced anxiety disorder; F41.1 Generalized anxiety disorder; Z79.899 Other long term (current) drug therapy
CPT/HCPCS: 90004; 90100; 91588; 92235; 92530; 92720; 92760; 92761; 92762; 92763; 92764; 92765; 92766; 92767; 93070; 94060; 95059

== ENCOUNTER 2016-05-26 06:02 | Emergency (ER) | payer OTHER ==
--- NOTE | 2016-05-26 10:07 | ED CLINICAL REPORT ---
Clinical Report - Physicians/Mid Levels [facility] [address] [place] [address] 05/26/2016 6:02 Patient: ROMEO HOOKER Time Seen: 06:16. Arrived- By private vehicle. Historian- patient. HISTORY OF PRESENT ILLNESS Chief Complaint: VOMITING and DIARRHEA. This started today and is still present. It was abrupt in onset and has been intermittent and waxing/waning. The patient has had nausea and vomiting. She has had black stools (She has been taking Pepto-Bismol). Has not recently been camping or on antibiotics. No history of possible bad food exposure or known contact with a sick individual. The illness is described as severe. REVIEW OF SYSTEMS Last normal menstrual period was 2 weeks ago. She has had abnormal bleeding (she reports this morning when she was vomiting she felt something wet in her vulva and checked and noted bleeding. She said that this is very abnormal for her.). All systems otherwise negative, except as recorded above. SOCIAL HISTORY Never smoker. Regular alcohol use; consumes two glasses of wine daily. Patient is alcoholic. FAMILY HISTORY Denies family medical history. ADDITIONAL NOTES The nursing notes have been reviewed. PHYSICAL EXAM Vital Signs: 05/26/2016 06:07 BP: 149/81. HR: 110. RR: 20. O2 saturation: 96%. Temp: 98.6 F. Pain level now: 8/10. Have been reviewed. Appearance: Alert. Eyes: Pupils equal, round and reactive to light. ENT: Pharynx normal. Neck: Normal inspection. Neck supple. CVS: Normal heart rate and rhythm. Heart sounds normal. Respiratory: No respiratory distress. Breath sounds normal. Abdomen: Soft and nontender. Abnormal bowel sounds: hyperactive. No organomegaly. No mass. Back: Normal inspection. No CVA tenderness. : Slight vaginal bleeding, consisting of dark blood, via the cervical os. Bimanual exam normal. Rectal: Rectal exam normal and nontender. Stool heme negative. (POC test reference range: negative). Skin: Skin warm and dry. Normal skin color. Normal skin turgor. Extremities: Extremities exhibit normal ROM. No lower extremity edema. LABS, X-RAYS, AND EKG Pelvic Sonogram: Mild endometrial wall thickening is present (vascular - 8mm). An ovarian cyst is present. Free fluid is present. possible left sided paraovarian cyst with septations. The study was interpreted contemporaneously by me and discussed with the radiologist. Laboratory Tests: UA-Culture if indicated: (ALEENA: 05/26/2016 06:07) ( [facility] 05/26/2016 07:29) Final results Test Result Flag Units (Reference) URINE COLOR YELLOW URINE APPEARANCE CLEAR URINE GLUCOSE NEGATIVE (NEGATIVE) URINE BILIRUBIN NEGATIVE (NEGATIVE) URINE KETONE NEGATIVE (NEGATIVE) URINE SPECIFIC GRAVITY 1.015 (1.010-1.030) URINE PH 6.0 (5.0-8.0) URINE PROTEIN NEGATIVE (NEGATIVE) URINE UROBILINOGEN 0.2 EU/dL (0.2-1.0) URINE NITRITE NEGATIVE (NEGATIVE) URINE BLOOD 2+ (NEGATIVE) URINE LEUK ESTERASE NEGATIVE (NEGATIVE) URINE RBC 3-5 rbc/hpf (0-1) URINE WBC NONE SEEN wbc/hpf (0-1) URINE EPITHELIAL CELLS 0-1 EPI/hpf (0-5) URINE BACTERIA NONE SEEN (NONE SEEN) URINE COMMENT CULT NOT INDICATED URINE CULTURES ARE SET-UP BASED ON THE FOLLOWING CRITERIA:POSITIVE NITRITEPOSITIVE LEUKOCYTE ESTERASEGREATER THAN 10 WHITE BLOOD CELLSMODERATE (2+) OR GREATER BACTERIA Urine: (ALEENA: 05/26/2016 06:07) ( [facility] [place] [place] 05/26/2016 06:39) Final results Test Result Flag Units (Reference) URINE NEGATIVE CBC w Diff: (ALEENA: 05/26/2016 06:20) ( [facility] [place] 05/26/2016 06:37) Final results Test Result Flag Units (Reference) WHITE BLOOD COUNT 5.9 K/uL (4.5-11.5) RED BLOOD COUNT 4.57 M/uL (4.00-5.20) HEMOGLOBIN 11.4 L gm/dL (12.0-16.0) HEMATOCRIT 34.6 L % (36.0-46.0) MEAN CELL VOLUME 76 L fL (80-100) MEAN CORPUSCULAR HGB 25 L pg (26-34) MEAN CORPUSCULAR HGB CONC 33 g/dL (31-37) RED CELL DISTRIBUTION WIDTH 18.6 H % (11.6-14.8) PLATELET COUNT 209 K/uL (150-400) NEUTROPHIL % 47.9 L % (50-75) LYMPH % 38.0 % (25-40) MONO % 7.2 % (3-14) EOSINOPHIL % 6.3 H % (0-4) BASOPHIL % 0.6 % (0-2) CMP: (ALEENA: 05/26/2016 06:20) ( [facility] 05/26/2016 06:57) Final results Test Result Flag Units (Reference) GLUCOSE 113 H mg/dL (70-110) BUN 9 mg/dL (7-18) CREATININE 0.9 mg/dL (0.6-1.3) Estimated GFR >60 mL/min Estimated GFR- >60 mL/min Note: Persistent reduction over 3 months in eGFR<60 mL/min/1.73 m2 defines CKD. Patients with eGFR values>=60 mL/min/1.73 m2 may also have CKD if evidence ofpersistent proteinuria. Additional information may be foundat www.kidney.org. SODIUM 140 mmol/L (136-145) POTASSIUM 3.8 mmol/L (3.5-5.1) CHLORIDE 106 mmol/L (98-107) CARBON DIOXIDE 24 mmol/L (21-32) CALCIUM 8.6 mg/dL (8.5-10.1) TOTAL PROTEIN 7.4 g/dL (6.4-8.2) ALBUMIN 3.6 g/dL (3.3-5.0) BILIRUBIN, TOTAL 0.3 mg/dL (0.0-1.0) ALKALINE PHOSPHATASE 76 U/L (46-116) AST (SGOT) 35 U/L (15-37) ALT (SGPT) 45 U/L (12-78) LIPASE 159 U/L (73-393) AMYLASE 65 U/L (25-115) . PROGRESS AND PROCEDURES Course of Care: Patient is stable. Discussed case with patient's primary care provider, (Dori at the [facility]). Reviewed test results and need for additional work-up. Agreed upon treatment plan and need for patient follow-up. Health care provider will see patient in office. Patient/family counseled. Old medical records reviewed. Disposition: Discharged. Condition: stable. CLINICAL IMPRESSION Mild dysfunctional uterine bleeding. Gastroenteritis. possible left-sided paraovarian cyst with septations. INSTRUCTIONS Drink plenty of fluids. Warnings: Further evaluation is necessary in order to conduct further tests and assess the possibility of serious illness. It is very important to follow up with a physician. GENERAL WARNINGS: Return or contact your physician immediately if your condition worsens or changes unexpectedly, if not improving as expected, or if other problems arise. Prescription Medications: Zofran 4 mg: Take 1 orally every six hours as needed for nausea/vomiting. Dispense ten (10). No refills. Substitution is permissible. Follow-up: Follow up with your doctor [facility] tomorrow. Call for an appointment. Follow up with a popcorn candy maker tomorrow. Call for an appointment. Understanding of the discharge instructions verbalized by patient. (Electronically signed by Prosper Condon MD 06/02/2016 2:17)
--- NOTE | 2016-05-26 10:07 | ED NURSING NOTES ---
Clinical Report - Nurses [facility] [address] [place] [address] 05/26/2016 6:02 Patient: ROMEO HOOKER TRIAGE <<STRICKEN ENTRY-- Triage time 06:07. Acuity: LEVEL 3. Chief Complaint: ABDOMINAL PAIN, NAUSEA and VOMITING and VAGINAL BLEEDING. Alert. JERRY COMA SCORE: [place] Coma Scale: 15- eyes open spontaneously (4); best verbal response- oriented x 4 (5); best motor response- obeys commands (6). --06:14 Darnell Branham R.N. --END STRIKE>> Correction --06:21 Darnell Branham R.N. 06:07 05/26/16. BP: 149/81. HR: 110. RR: 20. O2 saturation: 96%. Temp: 98.6 F (oral). Pain level now: 09/16. --06:14 Darnell Branham R.N. Chief Complaint: ABDOMINAL PAIN, NAUSEA and VOMITING. --06:22 Darnell Branham R.N. Acuity: LEVEL 3. Alert. JERRY COMA SCORE: [place] Coma Scale: 15- eyes open spontaneously (4); best verbal response- oriented x 4 (5); best motor response- obeys commands (6). --06:23 Darnell Branham R.N. Weight: 86.1 kg stated. Height/Length: 68 inches Per Patient. BMI: 28.9. --06:09 Darnell Branham R.N. Medications BusPIRone HCl Oral 30 mg, daily. CeleXA Oral (Tablet 20 mg) 1 tablet, daily. Omeprazole Oral 20 mg, daily. Xanax Oral 0.5 mg, daily as needed. --06:09 Darnell Branham R.N. Allergies NKDA. --06:08 Darnell Branham R.N. History Arrived by private vehicle. Historian: patient. Unaccompanied. This started today. Onset. ("this morning"). ( vaginal bleeding, stats that her period ended "2 weeks ago"). PAST MEDICAL HX: Last normal menstrual period- 2 weeks ago. SOCIAL HX: Smoker- current status unknown. Does not smoke cigarettes. Regular alcohol use; consumes two glasses of wine. No drug use. FALL RISK ASSESSMENT: Fall risk assessment completed. No fall risk identified. NUTRITIONAL RISK ASSESSMENT: The nutritional risk assessment revealed no deficiencies. FUNCTIONAL ASSESSMENT: Functional assessment: no impairments noted. LEARNING NEEDS ASSESSMENT: The learning needs assessment revealed no barriers. SKIN INTEGRITY ASSESSMENT: Skin integrity risk assessment completed. No skin integrity risk identified. --06:14 Darnell Branham R.N. This started today. Onset. ("this morning"). --06:22 Darnell Branham R.N. PROBLEMS: Mental Illness. Alcoholism. Substance Abuse. Alcohol Withdrawal. GI Bleeding. Anxiety Reaction. Etoh withdrawal . Reflux. Anxiety/depression . --06:08 Darnell Branham R.N. ADDITIONAL SURGERIES: Liver bx . Tubal Ligation. Tubal preg. --06:08 Darnell Branham R.N. Interventions ID band on patient. To treatment room. --06:14 Darnell Branham R.N. ID band on patient. To treatment room. --06:23 Darnell Branham R.N. PHYSICAL ASSESSMENT Ambulatory to room. GENERAL / NEURO / PSYCH: Alert. Oriented X 4. HEENT: Mucous membranes are pink. RESPIRATORY: Respirations not labored. CVS: Capillary refill less than 2 seconds. GI / : The patient has had nausea. Abdomen soft. Abdominal tenderness. SKIN: Skin is warm and dry. --06:14 Darnell Branham R.N. NURSING PROGRESS NOTES Patient gowned. Head of bed elevated. Reassurance given. Two patient identifiers checked. Call light placed in reach. Side rails up x 1. Bed placed in lowest position. Brakes of bed on. Patient ready for evaluation- chart flagged. Patient waiting for evaluation. --06:14 Darnell Branham R.N. 06:20 05/26/2016 Site #1 started via IV in the left antecubital space with an 20g angiocath; one attempt. Blood drawn: rainbow set. Labeled in the presence of the patient and sent to the lab. Saline lock flushed with 10 mL saline. --06:23 Darnell Branham R.N. 06:24 05/26/2016 Started bag #1 1000 mL IV Fluids IV NS (Saline); at 1000 mL/hr over 1 hour(s) via site #1. Allergies verified and confirmed 5 rights. IV patency established. IV site checked: no pain, redness, or swelling. IV flushed thoroughly pre- and post-medication administration. Completed per protocol. --06:24 Darnell Branham R.N. ( Doctor with patient currently). --06:24 Darnell Branham R.N. 06:27 05/26/2016 Zofran (Ondansetron HCl) IVP 4 mg given over 1 minute(s) via site #1. Allergies verified and confirmed 5 rights. IV patency established. IV site checked: no pain, redness, or swelling. IV flushed thoroughly pre- and post-medication administration. IVP given by RN. --06:33 Darnell Branham R.N. 06:28 05/26/2016 PROTONIX (Pantoprazole Sodium) IVP 40 mg given over 2 minute(s) via site #1. Allergies verified and confirmed 5 rights. IV patency established. IV site checked: no pain, redness, or swelling. IV flushed thoroughly pre- and post-medication administration. IVP given by RN. --06:32 Darnell Branham R.N. ( Report given to Nathalia Hurt RN). --07:04 Darnell Branham R.N. 07:05 05/26/16. Patient informed about reason for wait and about plan of care. --07:05 Gokul Mas R.N. 07:05 05/26/16. BP: 145/92. HR: 110. RR: 18. O2 saturation: 100% on room air. --07:05 Gokul Mas R.N. 07:05 05/26/16. --07:05 Gokul Mas R.N. 07:05/26/16. The patient is resting quietly. Overall patient status (pt states she feels anxious). --07:05 Gokul Mas R.N. 07:06 05/26/16. Temp: 98.4 F (oral). --07:06 Gokul Mas R.N. 07:06 05/26/16. --07:06 Gokul Mas R.N. 07:06 05/26/16. Pulse oximeter and NIBP monitor placed on patient. --07:06 Gokul Mas R.N. 07:22 05/26/2016 IV Fluids IV NS Discontinued: bag #1 completed. Total amount infused: 1000 mL. IV patency established. IV site checked: no pain, redness, or swelling. IV flushed thoroughly. --07:22 Nathalia Hurt R.N. 07:22 05/26/16. ( Patient woke up stating she had a bad dream, she says she was shaking, she admits to feeling anxious. Vitals stable, requesting more fluids through IV. Asked her if she wants something to eat or drink but says she is nauseous.). --07:24 Nathalia Hurt R.N. Monitoring of patient in place. Reassurance given. Call light placed in reach. Side rails up x 2. Bed placed in lowest position. Brakes of bed on. --08:03 Nathalia Hurt R.N. 08:02 05/26/16. BP: 125/69 (regular adult cuff) taken on the left arm, while lying. HR: 109. RR: 20. O2 saturation: 99% on room air. Pain level now: 06/16. --08:03 Nathalia Hurt R.N. ( Offered to turn light on for patient since she continues to have bad dreams, she refused this.). --08:05 Nathalia Hurt R.N. 08:21 05/26/16. BP: 134/90 (regular adult cuff) taken on the left arm, while lying. HR: 96. RR: 20. O2 saturation: 97%. Pain level now: 06/16. --08:22 Nathalia Hurt R.N. ( US in with patient). --08:48 Nathalia Hurt R.N. 09:45 05/26/16 late entry -. ( US finished). --09:56 Nathalia Hurt R.N. 09:56 05/26/16. BP: 134/90 (regular adult cuff) taken on the left arm, while sitting. HR: 95. RR: 18. O2 saturation: 100%. Pain level now: 0. --09:57 Nathalia Hurt R.N. DISPOSITION / DISCHARGE 10:13 05/26/2016 Site #1 removed upon discharge. Catheter intact. --10:13 Gokul Mas R.N. 10:14 05/26/16. Condition at departure: improved. The goals identified in the patient's plan of care were met. No learning barriers present. Discharge instructions provided and reviewed with the patient. Reviewed warnings. Reviewed medication(s). Treatments reviewed. Reviewed referrals (Pt to follow up with PCP and OBGYN tomorrow). Patient verbalized understanding. Written instructions provided in [place]. The patient was discharged by the physician. She was discharged home and unaccompanied at time of discharge. She left the Emergency Department ambulatory and via private vehicle. FALL RISK ASSESSMENT: Fall risk assessment completed. No fall risk identified. --10:14 Gokul Mas R.N. 10:12 05/26/16. BP: 136/71. HR: 90. RR: 14. O2 saturation: 99% on room air. Temp: 98.5 F (oral). Pain level now: 03/19. --10:14 Gokul Mas R.N. 10:14 05/26/16. Departure time: 10:14. --10:14 Gokul Mas R.N. Locked/Released at 05/26/2016 12:10 by Gokul Mas R.N.
--- NOTE | 2016-05-26 10:07 | ED CLINICAL REPORT ---
Clinical Report - Physicians/Mid Levels [facility] [address] [place] [address] 05/26/2016 6:02 Patient: ROMEO HOOKER Time Seen: 06:16. Arrived- By private vehicle. Historian- patient. HISTORY OF PRESENT ILLNESS Chief Complaint: VOMITING and DIARRHEA. This started today and is still present. It was abrupt in onset and has been intermittent and waxing/waning. The patient has had nausea and vomiting. She has had black stools (She has been taking Pepto-Bismol). Has not recently been camping or on antibiotics. No history of possible bad food exposure or known contact with a sick individual. The illness is described as severe. REVIEW OF SYSTEMS Last normal menstrual period was 2 weeks ago. She has had abnormal bleeding (she reports this morning when she was vomiting she felt something wet in her vulva and checked and noted bleeding. She said that this is very abnormal for her.). All systems otherwise negative, except as recorded above. SOCIAL HISTORY Never smoker. Regular alcohol use; consumes two glasses of wine daily. Patient is alcoholic. FAMILY HISTORY Denies family medical history. ADDITIONAL NOTES The nursing notes have been reviewed. PHYSICAL EXAM Vital Signs: 05/26/2016 06:07 BP: 149/81. HR: 110. RR: 20. O2 saturation: 96%. Temp: 98.6 F. Pain level now: 8/10. Have been reviewed. Appearance: Alert. Eyes: Pupils equal, round and reactive to light. ENT: Pharynx normal. Neck: Normal inspection. Neck supple. CVS: Normal heart rate and rhythm. Heart sounds normal. Respiratory: No respiratory distress. Breath sounds normal. Abdomen: Soft and nontender. Abnormal bowel sounds: hyperactive. No organomegaly. No mass. Back: Normal inspection. No CVA tenderness. : Slight vaginal bleeding, consisting of dark blood, via the cervical os. Bimanual exam normal. Rectal: Rectal exam normal and nontender. Stool heme negative. (POC test reference range: negative). Skin: Skin warm and dry. Normal skin color. Normal skin turgor. Extremities: Extremities exhibit normal ROM. No lower extremity edema. LABS, X-RAYS, AND EKG Pelvic Sonogram: Mild endometrial wall thickening is present (vascular - 8mm). An ovarian cyst is present. Free fluid is present. possible left sided paraovarian cyst with septations. The study was interpreted contemporaneously by me and discussed with the radiologist. Laboratory Tests: UA-Culture if indicated: (ALEENA: 05/26/2016 06:07) ( [facility] 05/26/2016 07:29) Final results Test Result Flag Units (Reference) URINE COLOR YELLOW URINE APPEARANCE CLEAR URINE GLUCOSE NEGATIVE (NEGATIVE) URINE BILIRUBIN NEGATIVE (NEGATIVE) URINE KETONE NEGATIVE (NEGATIVE) URINE SPECIFIC GRAVITY 1.015 (1.010-1.030) URINE PH 6.0 (5.0-8.0) URINE PROTEIN NEGATIVE (NEGATIVE) URINE UROBILINOGEN 0.2 EU/dL (0.2-1.0) URINE NITRITE NEGATIVE (NEGATIVE) URINE BLOOD 2+ (NEGATIVE) URINE LEUK ESTERASE NEGATIVE (NEGATIVE) URINE RBC 3-5 rbc/hpf (0-1) URINE WBC NONE SEEN wbc/hpf (0-1) URINE EPITHELIAL CELLS 0-1 EPI/hpf (0-5) URINE BACTERIA NONE SEEN (NONE SEEN) URINE COMMENT CULT NOT INDICATED URINE CULTURES ARE SET-UP BASED ON THE FOLLOWING CRITERIA:POSITIVE NITRITEPOSITIVE LEUKOCYTE ESTERASEGREATER THAN 10 WHITE BLOOD CELLSMODERATE (2+) OR GREATER BACTERIA Urine: (ALEENA: 05/26/2016 06:07) ( [facility] 05/26/2016 06:39) Final results Test Result Flag Units (Reference) URINE NEGATIVE CBC w Diff: (ALEENA: 05/26/2016 06:20) ( [facility] [place]/26/[place] 06:37) Final results Test Result Flag Units (Reference) WHITE BLOOD COUNT 5.9 K/uL (4.5-11.5) RED BLOOD COUNT 4.57 M/uL (4.00-5.20) HEMOGLOBIN 11.4 L gm/dL (12.0-16.0) HEMATOCRIT 34.6 L % (36.0-46.0) MEAN CELL VOLUME 76 L fL (80-100) MEAN CORPUSCULAR HGB 25 L pg (26-34) MEAN CORPUSCULAR HGB CONC 33 g/dL (31-37) RED CELL DISTRIBUTION WIDTH 18.6 H % (11.6-14.8) PLATELET COUNT 209 K/uL (150-400) NEUTROPHIL % 47.9 L % (50-75) LYMPH % 38.0 % (25-40) MONO % 7.2 % (3-14) EOSINOPHIL % 6.3 H % (0-4) BASOPHIL % 0.6 % (0-2) CMP: (ALEENA: 05/26/2016 06:20) ( Msg[facility]cvd 05/26/2016 06:57) Final results Test Result Flag Units (Reference) GLUCOSE 113 H mg/dL (70-110) BUN 9 mg/dL (7-18) CREATININE 0.9 mg/dL (0.6-1.3) Estimated GFR >60 mL/min Estimated GFR- >60 mL/min Note: Persistent reduction over 3 months in eGFR<60 mL/min/1.73 m2 defines CKD. Patients with eGFR values>=60 mL/min/1.73 m2 may also have CKD if evidence ofpersistent proteinuria. Additional information may be foundat www.[email or web address].org. SODIUM 140 mmol/L (136-145) POTASSIUM 3.8 mmol/L (3.5-5.1) CHLORIDE 106 mmol/L (98-107) CARBON DIOXIDE 24 mmol/L (21-32) CALCIUM 8.6 mg/dL (8.5-10.1) TOTAL PROTEIN 7.4 g/dL (6.4-8.2) ALBUMIN 3.6 g/dL (3.3-5.0) BILIRUBIN, TOTAL 0.3 mg/dL (0.0-1.0) ALKALINE PHOSPHATASE 76 U/L (46-116) AST (SGOT) 35 U/L (15-37) ALT (SGPT) 45 U/L (12-78) LIPASE 159 U/L (73-393) AMYLASE 65 U/L (25-115) . PROGRESS AND PROCEDURES Course of Care: Patient is stable. Discussed case with patient's primary care provider, (Dori at the [facility]). Reviewed test results and need for additional work-up. Agreed upon treatment plan and need for patient follow-up. Health care provider will see patient in office. Patient/family counseled. Old medical records reviewed. Disposition: Discharged. Condition: stable. CLINICAL IMPRESSION Mild dysfunctional uterine bleeding. Gastroenteritis. possible left-sided paraovarian cyst with septations. INSTRUCTIONS Drink plenty of fluids. Warnings: Further evaluation is necessary in order to conduct further tests and assess the possibility of serious illness. It is very important to follow up with a physician. GENERAL WARNINGS: Return or contact your physician immediately if your condition worsens or changes unexpectedly, if not improving as expected, or if other problems arise. Prescription Medications: Zofran 4 mg: Take 1 orally every six hours as needed for nausea/vomiting. Dispense ten (10). No refills. Substitution is permissible. Follow-up: Follow up with your doctor [facility] tomorrow. Call for an appointment. Follow up with a senior technical analyst tomorrow. Call for an appointment. Understanding of the discharge instructions verbalized by patient. (Electronically signed by Prosper Condon MD 06/02/2016 2:17)
--- NOTE | 2016-05-26 10:07 | ED ORDER SUMMARY ---
..... Patient: ROMEO HOOKER OrderSheet [facility] VisitID: [id number] [place] [address] 46y, F Registration Date/Time: 05/26/2016 ORDER SHEET Weight: 86.1 kg (stated) Allergies: NKDA GENERAL ORDERS: UA-Culture if indicated Urgent (06:17 05/26/2016 DDavis R.N. per protocol) (Ack 6:23 CHategekimana) (6:24 DDavis R.N.) Urine Urgent (06:05/26/2016 DDavis R.N. per protocol) (Ack 6:23 CHategekimana) (6:24 DDavis R.N.) CMP Urgent (06:05/26/2016 DDavis R.N. per protocol) (Ack 6:23 Carlinegekimana) (6:24 DDavis R.N.) CBC w Diff Urgent (06:17 05/26/2016 DDavis R.N. per protocol) (Ack 6:23 Carlinegekimana) (6:24 DDavis R.N.) Amylase Urgent (06:05/26/2016 Yulia EDDY) (Ack 6:23 CHategekimana) (6:24 DDavis R.N.) Lipase Urgent (06:17 05/26/2016 Yulia EDDY) (Ack 6:23 Carlinegekimana) (6:24 DDavis R.N.) US Pelvic Complete w Transvag Urgent (08:28 05/26/2016 Yulia EDDY) (Ack 8:32 PWeiler ER Tech1) (9:58 JSanders R.N.) Wet Prep (Cervix) (cervix) Urgent (08:59 05/26/2016 Yulia EDDY) (9:00 JSanders R.N.) GC/Chlamydia (Cervix) (cervix) Urgent (09:00 05/26/2016 Yulia EDDY) (9:00 JSanders R.N.) MEDICATION ORDERS: IV FLUIDS: IV NS : initial bolus 1000 mL (1000 mL/hr), then none - for X1 (NOW); Stat (06:15 05/26/2016 DDavis R.N. per protocol) (Ack 6:17 DDavis R.N.) (6:24 DDavis R.N.) IV Saline Lock (06:17 05/26/2016 DDavis R.N. per protocol) (Ack 6:17 DDavis R.N.) (6:23 DDavis R.N.) Protonix IVP 40mg 40 mg (Mix in NS 10ml over 2min) (06:21 05/26/2016 Yulia EDDY) (Ack 6:24 DDavis R.N.) (6:32 DDavis R.N.) Zofran IV 4 mg (NOW) (06:32 05/26/2016 DDavis R.N. verbal order read back to Yulia EDDY) (6:33 DDavis R.N.) ORDER SHEET NOTES: [Electronically signed by Gokul Mas R.N. (12:05/26/2016)] [Electronically signed by Prosper Condon MD (02:17 06/02/2016)] [Electronically locked/signed by Gokul Mas R.N. (12:05/26/2016)]
--- NOTE | 2016-05-26 10:07 | ED ORDER SUMMARY ---
..... Patient: ROMEO HOOKER OrderSheet [facility] VisitID: [id number] [place] [address] 46y, F Registration Date/Time: 05/26/2016 ORDER SHEET Weight: 86.1 kg (stated) Allergies: NKDA GENERAL ORDERS: UA-Culture if indicated Urgent (06:17 05/26/2016 DDavis R.N. per protocol) (Ack 6:23 CHategekimana) (6:24 DDavis R.N.) Urine Urgent (06:05/26/2016 DDavis R.N. per protocol) (Ack 6:23 CHategekimana) (6:24 DDavis R.N.) CMP Urgent (06:05/26/2016 DDavis R.N. per protocol) (Ack 6:23 Carlinegekimana) (6:24 DDavis R.N.) CBC w Diff Urgent (06:17 05/26/2016 DDavis R.N. per protocol) (Ack 6:23 Carlinegekimana) (6:24 DDavis R.N.) Amylase Urgent (06:05/26/2016 Yulia EDDY) (Ack 6:23 CHategekimana) (6:24 DDavis R.N.) Lipase Urgent (06:17 05/26/2016 Yulia EDDY) (Ack 6:23 Carlinegekimana) (6:24 DDavis R.N.) US Pelvic Complete w Transvag Urgent (08:28 05/26/2016 Yulia EDDY) (Ack 8:32 PWeiler ER Tech1) (9:58 JSanders R.N.) Wet Prep (Cervix) (cervix) Urgent (08:59 05/26/2016 Yulia EDDY) (9:00 JSanders R.N.) GC/Chlamydia (Cervix) (cervix) Urgent (09:00 05/26/2016 Yulia EDDY) (9:00 JSanders R.N.) MEDICATION ORDERS: IV FLUIDS: IV NS : initial bolus 1000 mL (1000 mL/hr), then none - for X1 (NOW); Stat (06:15 05/26/2016 DDavis R.N. per protocol) (Ack 6:17 DDavis R.N.) (6:24 DDavis R.N.) IV Saline Lock (06:17 05/26/2016 DDavis R.N. per protocol) (Ack 6:17 DDavis R.N.) (6:23 DDavis R.N.) Protonix IVP 40mg 40 mg (Mix in NS 10ml over 2min) (06:21 05/26/2016 Yulia EDDY) (Ack 6:24 DDavis R.N.) (6:32 DDavis R.N.) Zofran IV 4 mg (NOW) (06:32 05/26/2016 DDavis R.N. verbal order read back to Yulia EDDY) (6:33 DDavis R.N.) ORDER SHEET NOTES: [Electronically signed by Gokul Mas R.N. (12:05/26/2016)] [Electronically signed by Prosper Condon MD (02:17 06/02/2016)] [Electronically locked/signed by Gokul Mas R.N. (12:05/26/2016)]
--- NOTE | 2016-05-26 10:42 | DIAGNOSTIC IMAGING REPORT ---
PROCEDURE: US COMPLETE PELVIC W/TRANSVAG INDICATION: ABNORMAL BLEEDING TECHNIQUE: Transabdominal and endovaginal souza scale and color Doppler sonographic images of the female pelvis were obtained. COMPARISON: None. FINDINGS: TRANSABDOMINAL SCANS: Anteverted uterus. Bladder normal as visualized. No pelvic mass. TRANSVAGINAL SCANS: The uterus measures 5.1 x 3.5 x 4.7 cm. Myometrium is unremarkable. Inhomogeneous endometrium measures 8.4 mm with mild hyperemia. Right ovary measures 2.4 x 2.4 x 1.7 is. Left ovary measures 2.8 x 2.4 x 1.8 cm with a 3.7 x 2.2 x 4.0 cm left paraovarian cyst. There is also a 1.7 cm left ovarian cyst with internal echoes. There is trace free fluid around the left adnexa. IMPRESSION: 1. 3.7 x 2.2 x 4.0 cm left paraovarian cyst with a small amount of adjacent free fluid. Recommend follow-up ultrasound after two to three menstrual cycles 2. 1.7 cm hemorrhagic/proteinaceous left ovarian cyst 3. Hyperemic endometrium which may represent hyperplasia. Recommend follow-up ultrasound 4. Results discussed with Dr. Condon
--- NOTE | 2016-06-02 02:17 | ED DISCHARGE INSTRUCTIONS ---
Patient: ROMEO HOOKER General Instructions [facility] VisitID: [id number] [place] [address] 46y, F Registration Date/Time: 05/26/2016 Mild dysfunctional uterine bleeding. Gastroenteritis. INSTRUCTIONS Drink plenty of fluids. Warnings: Further evaluation is necessary in order to conduct further tests and assess the possibility of serious illness. It is very important to follow up with a physician. GENERAL WARNINGS: Return or contact your physician immediately if your condition worsens or changes unexpectedly, if not improving as expected, or if other problems arise. Prescription Medications: Zofran 4 mg: Take 1 orally every six hours as needed for nausea/vomiting. Dispense ten (10). No refills. Substitution is permissible. Follow-up: Follow up with your doctor [facility] tomorrow. Call for an appointment. Follow up with a navy material inspector tomorrow. Call for an appointment. Understanding of the discharge instructions verbalized by patient. ADDITIONAL INFORMATION Viral Gastroenteritis (6Yr-Adult) Gastroenteritis is another name for thestomach flu.It is most often caused by a virus that affects the stomach and intestinal tract. Symptoms include stomach cramping and fever, vomiting and/or diarrhea, and can last from 2 to 7 days. The danger from repeated vomiting or diarrhea is dehydration. This is the loss of too much water and minerals from the body. When this occurs, body fluids must be replaced. Antibiotics are not effective for this illness, but simple home treatment will be helpful. Home Care If symptoms are severe, rest at home for the next 24 hours. Avoid tobacco, caffeine, and alcohol use, which can worsen symptoms. Acetaminophen (Tylenol) or ibuprofen (Motrin, Advil) may be usedfor fever or pain unless another medication was prescribed. NOTE: If you have chronic liver or kidney disease or ever had a stomach ulcer or GI bleeding, talk with your doctor before using these medicines. Aspirin should never be used in anyone under 18 years of age who is ill with a fever. It may cause severe liver damage. If medicines for diarrhea or vomiting were prescribed, be sure they are takenonly as directed. If vomiting, drink small amounts of clear fluids (such as water, sports drinks, clear sodas) at frequent intervals to prevent dehydration. Start with 1 to 2 tablespoons every 10 minutes. Once vomiting stops, follow these guidelines: During The First 12 To 24 Hours follow the diet below: Beverages: Sport drinks like Gatorade, soft drinks without caffeine; aryan duong, mineral water (plain or flavored), decaffeinated tea and coffee. Soups: Clear broth, consomm and bouillon Desserts: Plain gelatin (Jell-O), Popsicles and fruit juice bars. During The Next 24 Hours you may add the following to the above: Hot cereal, plain toast, bread, rolls, crackers Plain noodles, rice, mashed potatoes, chicken noodle or rice soup Unsweetened canned fruit (avoid pineapple), bananas Limit fat intake to less than 15 grams per day by avoiding margarine, butter, oils, mayonnaise, sauces, gravies, fried foods, peanut butter, meat, poultry, and fish. Limit fiber; avoid raw or cooked vegetables, fresh fruits (except bananas), and bran cereals. Limit caffeine and chocolate. Do not use spices or seasonings except salt. During The Next 24 Hours The patient can gradually resume a normal diet as symptoms lessen. Preventing Spread Hand washing with soap and water is the best way to prevent the spread of viruses. Caregivers should wash their hands before andafter touching the sick person. The sick person, as well as everyone in the family,should wash their hands after using the toilet and before meals. Clean the toilet after each use. People with diarrhea should not prepare food for others. If you are preparing your own foods, wash your hands before and after. Follow Up with your doctor as advised. Call your doctor if you are not improving over the next 2 to 3 days. If a stool (diarrhea) sample was taken, you may call in 2 days (or as directed) for the results. Get Prompt Medical Attention if any of the following occur: Increasing abdominal pain Continued vomiting (unable to keep liquids down) Frequent diarrhea (more than 5 times a day) Blood in vomit or stool (black or red color) Dark urine, reduced urine output, or extreme thirst Weakness, dizziness, fainting Drowsiness, confusion, stiff neck, or seizure Fever of 100.4F (38C) oral or higher, not better with fever medication New rash Ondansetron Oral disintegrating tablet What is this medicine? ONDANSETRON (on EFREN se ladarius) is used to treat nausea and vomiting caused by chemotherapy. It is also used to prevent or treat nausea and vomiting after surgery. How should I use this medicine? These tablets are made to dissolve in the mouth. Do not try to push the tablet through the foil backing. With dry hands, peel away the foil backing and gently remove the tablet. Place the tablet in the mouth and allow it to dissolve, then swallow. While you may take these tablets with water, it is not necessary to do so. Talk to your facility manager regarding the use of this medicine in children. Special care may be needed. What side effects may I notice from receiving this medicine? Side effects that you should report to your doctor or health health and social care teacher as soon as possible: allergic reactions like skin rash, itching or hives, swelling of the face, lips, or tongue breathing problems dizziness fast or irregular heartbeat feeling faint or lightheaded, falls fever and chills swelling of the hands and feet tightness in the chest Side effects that usually do not require medical attention (report to your doctor or health health and social care teacher if they continue or are bothersome): constipation or diarrhea headache What may interact with this medicine? Do not take this medicine with any of the following medications: -apomorphine -cisapride -dofetilide -dronedarone -pimozide -thioridazine -ziprasidone This medicine may also interact with the following medications: -carbamazepine -phenytoin -rifampicin -tramadol -other medicines that prolong the QT interval (cause an abnormal heart rhythm) What if I miss a dose? If you miss a dose, take it as soon as you can. If it is almost time for your next dose, take only that dose. Do not take double or extra doses. Where should I keep my medicine? Keep out of the reach of children. Store between 2 and 30 degrees C (36 and 86 degrees F). Throw away any unused medicine after the expiration date. What should I tell my health care provider before I take this medicine? They need to know if you have any of these conditions: heart disease history of irregular heartbeat liver disease low levels of magnesium or potassium in the blood an unusual or allergic reaction to ondansetron, granisetron, other medicines, foods, dyes, or preservatives or trying to get breast-feeding What should I watch for while using this medicine? Check with your doctor or health health and social care teacher as soon as you can if you have any sign of an allergic reaction. You have been given the following additional information: Gastroenteritis, Viral (6Y-Adult) Ondansetron Oral disintegrating tablet (Electronically signed by Prosper Condon MD 06/02/2016 2:17)
--- NOTE | 2016-06-02 02:17 | ED MAR SUMMARY ---
..... Medication Administration Record [facility] [address] [place] [address] Patient: ROMEO HOOKER Visit ID: [id number] 46y, F Weight: 86.1 kg Height/Length: 68 in BMI: 28.9 ALLERGIES: NKDA Start 06:24 05/26/2016 Darnell Branham RJosefina, Stop 07:22 05/26/2016 Nathalia Hurt R.N. Medication Administered: IV NS (SALINE), Dose: IV Fluids over 1 hour(s), Rate: 1000 mL/hr, Dispensed: 1000 mL bag, Site: #1 left AC. Medication Ordered: IV NS : initial bolus 1000 mL (1000 mL/hr), then none - for X1 (NOW); Stat. Given 06:27 05/26/2016 Darnell Branham R.N. Medication Administered: ZOFRAN [IVP] (ONDANSETRON HCL), Dose: 4 mg IVP over 1 minute(s), Site: #1 left AC. Medication Ordered: Zofran IV 4 mg (NOW). Given 06:28 05/26/2016 Darnell Branham R.N. Medication Administered: PROTONIX [IVP] (PANTOPRAZOLE SODIUM), Dose: 40 mg IVP over 2 minute(s), Site: #1 left AC. Medication Ordered: Protonix IVP 40mg 40 mg (Mix in NS 10ml over 2min).
--- NOTE | 2016-06-02 02:17 | ED DISCHARGE INSTRUCTIONS ---
Patient: ROMEO HOOKER General Instructions [facility] VisitID: [id number] [place] [address] 46y, F Registration Date/Time: 05/26/2016 Mild dysfunctional uterine bleeding. Gastroenteritis. INSTRUCTIONS Drink plenty of fluids. Warnings: Further evaluation is necessary in order to conduct further tests and assess the possibility of serious illness. It is very important to follow up with a physician. GENERAL WARNINGS: Return or contact your physician immediately if your condition worsens or changes unexpectedly, if not improving as expected, or if other problems arise. Prescription Medications: Zofran 4 mg: Take 1 orally every six hours as needed for nausea/vomiting. Dispense ten (10). No refills. Substitution is permissible. Follow-up: Follow up with your doctor [facility] tomorrow. Call for an appointment. Follow up with a fabrication specialist tomorrow. Call for an appointment. Understanding of the discharge instructions verbalized by patient. ADDITIONAL INFORMATION Viral Gastroenteritis (6Yr-Adult) Gastroenteritis is another name for thestomach flu.It is most often caused by a virus that affects the stomach and intestinal tract. Symptoms include stomach cramping and fever, vomiting and/or diarrhea, and can last from 2 to 7 days. The danger from repeated vomiting or diarrhea is dehydration. This is the loss of too much water and minerals from the body. When this occurs, body fluids must be replaced. Antibiotics are not effective for this illness, but simple home treatment will be helpful. Home Care If symptoms are severe, rest at home for the next 24 hours. Avoid tobacco, caffeine, and alcohol use, which can worsen symptoms. Acetaminophen (Tylenol) or ibuprofen (Motrin, Advil) may be usedfor fever or pain unless another medication was prescribed. NOTE: If you have chronic liver or kidney disease or ever had a stomach ulcer or GI bleeding, talk with your doctor before using these medicines. Aspirin should never be used in anyone under 18 years of age who is ill with a fever. It may cause severe liver damage. If medicines for diarrhea or vomiting were prescribed, be sure they are takenonly as directed. If vomiting, drink small amounts of clear fluids (such as water, sports drinks, clear sodas) at frequent intervals to prevent dehydration. Start with 1 to 2 tablespoons every 10 minutes. Once vomiting stops, follow these guidelines: During The First 12 To 24 Hours follow the diet below: Beverages: Sport drinks like Gatorade, soft drinks without caffeine; aryan duong, mineral water (plain or flavored), decaffeinated tea and coffee. Soups: Clear broth, consomm and bouillon Desserts: Plain gelatin (Jell-O), Popsicles and fruit juice bars. During The Next 24 Hours you may add the following to the above: Hot cereal, plain toast, bread, rolls, crackers Plain noodles, rice, mashed potatoes, chicken noodle or rice soup Unsweetened canned fruit (avoid pineapple), bananas Limit fat intake to less than 15 grams per day by avoiding margarine, butter, oils, mayonnaise, sauces, gravies, fried foods, peanut butter, meat, poultry, and fish. Limit fiber; avoid raw or cooked vegetables, fresh fruits (except bananas), and bran cereals. Limit caffeine and chocolate. Do not use spices or seasonings except salt. During The Next 24 Hours The patient can gradually resume a normal diet as symptoms lessen. Preventing Spread Hand washing with soap and water is the best way to prevent the spread of viruses. Caregivers should wash their hands before andafter touching the sick person. The sick person, as well as everyone in the family,should wash their hands after using the toilet and before meals. Clean the toilet after each use. People with diarrhea should not prepare food for others. If you are preparing your own foods, wash your hands before and after. Follow Up with your doctor as advised. Call your doctor if you are not improving over the next 2 to 3 days. If a stool (diarrhea) sample was taken, you may call in 2 days (or as directed) for the results. Get Prompt Medical Attention if any of the following occur: Increasing abdominal pain Continued vomiting (unable to keep liquids down) Frequent diarrhea (more than 5 times a day) Blood in vomit or stool (black or red color) Dark urine, reduced urine output, or extreme thirst Weakness, dizziness, fainting Drowsiness, confusion, stiff neck, or seizure Fever of 100.4F (38C) oral or higher, not better with fever medication New rash Ondansetron Oral disintegrating tablet What is this medicine? ONDANSETRON (on EFREN se ladarius) is used to treat nausea and vomiting caused by chemotherapy. It is also used to prevent or treat nausea and vomiting after surgery. How should I use this medicine? These tablets are made to dissolve in the mouth. Do not try to push the tablet through the foil backing. With dry hands, peel away the foil backing and gently remove the tablet. Place the tablet in the mouth and allow it to dissolve, then swallow. While you may take these tablets with water, it is not necessary to do so. Talk to your manager endoscopy regarding the use of this medicine in children. Special care may be needed. What side effects may I notice from receiving this medicine? Side effects that you should report to your doctor or health social worker palliative care as soon as possible: allergic reactions like skin rash, itching or hives, swelling of the face, lips, or tongue breathing problems dizziness fast or irregular heartbeat feeling faint or lightheaded, falls fever and chills swelling of the hands and feet tightness in the chest Side effects that usually do not require medical attention (report to your doctor or health social worker palliative care if they continue or are bothersome): constipation or diarrhea headache What may interact with this medicine? Do not take this medicine with any of the following medications: -apomorphine -cisapride -dofetilide -dronedarone -pimozide -thioridazine -ziprasidone This medicine may also interact with the following medications: -carbamazepine -phenytoin -rifampicin -tramadol -other medicines that prolong the QT interval (cause an abnormal heart rhythm) What if I miss a dose? If you miss a dose, take it as soon as you can. If it is almost time for your next dose, take only that dose. Do not take double or extra doses. Where should I keep my medicine? Keep out of the reach of children. Store between 2 and 30 degrees C (36 and 86 degrees F). Throw away any unused medicine after the expiration date. What should I tell my health care provider before I take this medicine? They need to know if you have any of these conditions: heart disease history of irregular heartbeat liver disease low levels of magnesium or potassium in the blood an unusual or allergic reaction to ondansetron, granisetron, other medicines, foods, dyes, or preservatives or trying to get breast-feeding What should I watch for while using this medicine? Check with your doctor or health social worker palliative care as soon as you can if you have any sign of an allergic reaction. You have been given the following additional information: Gastroenteritis, Viral (6Y-Adult) Ondansetron Oral disintegrating tablet (Electronically signed by Prosper Condon MD 06/02/2016 2:17)
--- NOTE | 2016-06-02 02:17 | ED MED RECONCILIATION SUMMARY ---
Patient: ROMEO HOOKER Medication Reconciliation Report [facility] VisitID: [id number] [address] [place] [address] 46y, F Registration Date/Time: 05/26/2016 Weight: 86.1 kg Height/Length: 68 in. BMI: 28.9 ALLERGIES: NKDA The patient's Home Medications are listed below: THE FOLLOWING MEDICATIONS NEED TO BE RECONCILED: BusPIRone HCl Oral 30 mg, daily CeleXA Oral (20 mg) 1 tablet, daily Omeprazole Oral 20 mg, daily Xanax Oral 0.5 mg, daily The source(s) of the original Home Medication information: Not obtained. The following Medications were given to the patient in the Emergency Department: IV NS IV Fluids bolus 0, then 1000 mL/hr, administered: 05/26/2016 6:24:00 AM PROTONIX [IVP] IVP 40 mg, administered: 05/26/2016 6:28:00 AM Zofran [IVP] IVP 4 mg, administered: 05/26/2016 6:27:00 AM The following Medications were prescribed to the patient: Zofran 4 mg: Take 1 orally every six hours as needed for nausea/vomiting. Dispense ten (10). No refills. Substitution is permissible. -- Prosper Condon MD
--- NOTE | 2016-06-02 02:17 | ED MED RECONCILIATION SUMMARY ---
Patient: ROMEO HOOKER Medication Reconciliation Report [facility] VisitID: [id number] [address] [place] [address] 46y, F Registration Date/Time: 05/26/2016 Weight: 86.1 kg Height/Length: 68 in. BMI: 28.9 ALLERGIES: NKDA The patient's Home Medications are listed below: THE FOLLOWING MEDICATIONS NEED TO BE RECONCILED: BusPIRone HCl Oral 30 mg, daily CeleXA Oral (20 mg) 1 tablet, daily Omeprazole Oral 20 mg, daily Xanax Oral 0.5 mg, daily The source(s) of the original Home Medication information: Not obtained. The following Medications were given to the patient in the Emergency Department: IV NS IV Fluids bolus 0, then 1000 mL/hr, administered: 05/26/2016 6:24:00 AM PROTONIX [IVP] IVP 40 mg, administered: 05/26/2016 6:28:00 AM Zofran [IVP] IVP 4 mg, administered: 05/26/2016 6:27:00 AM The following Medications were prescribed to the patient: Zofran 4 mg: Take 1 orally every six hours as needed for nausea/vomiting. Dispense ten (10). No refills. Substitution is permissible. -- Prosper Condon MD
--- NOTE | 2016-06-02 02:17 | ED MAR SUMMARY ---
..... Medication Administration Record [facility] [address] [place] [address] Patient: ROMEO HOOKER Visit ID: [id number] 46y, F Weight: 86.1 kg Height/Length: 68 in BMI: 28.9 ALLERGIES: NKDA Start 06:24 05/26/2016 Darnell Branham RJosefina, Stop 07:22 05/26/2016 Nathalia Hurt R.N. Medication Administered: IV NS (SALINE), Dose: IV Fluids over 1 hour(s), Rate: 1000 mL/hr, Dispensed: 1000 mL bag, Site: #1 left AC. Medication Ordered: IV NS : initial bolus 1000 mL (1000 mL/hr), then none - for X1 (NOW); Stat. Given 06:27 05/26/2016 Darnell Branham R.N. Medication Administered: ZOFRAN [IVP] (ONDANSETRON HCL), Dose: 4 mg IVP over 1 minute(s), Site: #1 left AC. Medication Ordered: Zofran IV 4 mg (NOW). Given 06:28 05/26/2016 Darnell Branham R.N. Medication Administered: PROTONIX [IVP] (PANTOPRAZOLE SODIUM), Dose: 40 mg IVP over 2 minute(s), Site: #1 left AC. Medication Ordered: Protonix IVP 40mg 40 mg (Mix in NS 10ml over 2min).
== END 2016-05-26 10:14 | disposition home or self-care (01) ==
LOC: ED SRH 06:02
DX: N93.8 Other specified abnormal uterine and vaginal bleeding (principal); K52.9 Noninfective gastroenteritis and colitis, unspecified; K21.9 Gastro-esophageal reflux disease without esophagitis; Z79.899 Other long term (current) drug therapy
CPT/HCPCS: 90004; 90100; 90195; 91227; 91228; 92235; 92530; 93070; 95059